=== PATIENT | male | born 1965 ===

== ENCOUNTER → 2024-02-25 11:41 | Outpatient (REF) | payer OTHER, SELFPAY | LOC: HWCARD 11:41 | PROVIDERS: ATTENDING PHYSICIAN Nurse Practitioner Family | DX: R53.83 Other fatigue (principal); R42 Dizziness and giddiness | CPT/HCPCS: 93005 ==

== ENCOUNTER 2025-01-19 20:13 | Emergency (ER) | payer OTHER, SELFPAY ==
[2025-01-19 20:27] VITALS: BP 145/82
--- NOTE | 2025-01-20 00:58 | ED.GENMED ---
History of Present Illness
General
Chief Complaint: Musculo-Skeletal Complaint
Source: patient and spouse
Exam Limitations: none
Time Seen by Provider: 01/19/25 22:36
Nursing documentation reviewed up to this point in time: agreed with
History of Present Illness
History of Present Illness:
Note:
CHIEF COMPLAINT(S)
Swelling and increased pain in the foot and ankle following a calf injury.
HISTORY OF PRESENT ILLNESS
The patient is a 59-year-old male who presented with swelling and increased pain in the foot and ankle following a calf injury. The patient described the onset of symptoms after playing tennis on Saturday morning and attempting a win movement,
during which he felt a 'pop' in his calf and immediately fell to the ground. The initial injury was followed by 36 hours of icing the affected area. The foot and ankle have shown progressive swelling and increased pain in the Achilles tendon area
since the initial incident. The patient has experienced calf tenderness immediately following the injury. Although the patient initially suspected no issue with the Achilles tendon, the recent symptoms have raised concerns. He reports being able to
walk slowly despite experiencing discomfort, predominantly in the calf region.
The patient denies any recent antibiotic use and has had limited mobility since the injury, with significant pain on weight bearing. The patient notes no history of complete rupture and mentions a lack of obvious broken bones as per a current
evaluation. The patient suspects a partial tear in the Achilles tendon and is experiencing significant swelling around the Achilles region.
PHYSICAL EXAM
- Musculoskeletal: No obvious deformities noted in the limbs. No visible muscle contraction deformity suggestive of complete Achilles tendon rupture.
- Bones: No tenderness or obvious fractures upon palpation of bones.
Nursing notes reviewed and vital signs reviewed.
PROBLEM LIST
Acute:
- Calf Injury with suspected partial Achilles tendon tear
- Swelling and pain in the foot and ankle
- Calf tenderness following a physical activity
PLAN
- Order an ultrasound to evaluate for fluid and confirm the extent of any soft tissue injury.
- Recommend follow-up with an monitoring specialist for comprehensive evaluation and management.
- Immobilize the affected limb using a splint and provide crutches to minimize weight bearing and prevent further injury.
- Advised the patient to remain non-weight bearing until evaluated by orthopedic surgery.
- Arrange for referral to an orthopedic surgeon for further care.
DIFFERENTIAL DIAGNOSIS
The Differential Diagnosis includes, in no particular order and is not limited to:
1. Partial Achilles tendon tear
2. Ankle sprain
3. Calf muscle strain
4. Deep vein thrombosis ruled out
5. Achilles tendonitis
6. Ankle fracture
Disposition:
SUMMARY OF ENCOUNTER
A 59-year-old male presented to the emergency department with tenderness in the left calf after injuring himself playing tennis. He reported increased pain in the Achilles and calf regions, having ambulated on the injury since the incident. The
patient denied recent antibiotic use. X-rays revealed no fractures, and an ultrasound ruled out deep vein thrombosis (DVT).
ASSESSMENT
The patient is suspected to have a partial Achilles tendon tear with significant swelling and pain in the Achilles and calf regions.
PLAN
- Advise immobilization of the affected limb using a splint.
- Provide crutches to minimize weight-bearing and prevent further injury.
- Recommend follow-up with an monitoring specialist for further evaluation and management.
PATIENT EDUCATION AND COUNSELING
The patient was advised to remain non-weight bearing until evaluated by orthopedic surgery. Education was provided regarding the importance of avoiding activities that may exacerbate the injury.
FOLLOW-UP INSTRUCTIONS
The patient should follow up with an monitoring specialist as soon as possible for a comprehensive evaluation and management plan.
MEDICAL DECISION MAKING
-Complexity of Data Reviewed:
Chronic conditions affecting care include a recent calf injury with suspected partial Achilles tendon tear, swelling, and pain in the foot and ankle, as well as calf tenderness following physical activity.
Differential Diagnosis: Partial Achilles tendon tear, ankle sprain, calf muscle strain, deep vein thrombosis, Achilles tendonitis, ankle fracture, contusion to the calf muscle, plantar fasciitis, compartment syndrome, ruptured Bakers cyst.
-Data:
Category 1:
X-rays were reviewed and found to be negative for fractures. Ultrasound results were negative for DVT.
Category 3:
Patient instructed and management discussed about follow-up care with orthopedic surgery to further evaluate and manage the suspected partial Achilles tendon tear.
DIAGNOSIS
Suspected partial rupture of Achilles tendon (ICD-10: S86.012A)
Achilles tendinitis (ICD-10: M76.6)
Review of Systems
Review of Systems
Allergies reviewed?: Yes
All Other Systems: ROS reviewed and negative except as documented in HPI and ROS
Musculoskeletal: Reports muscle pain, muscle stiffness and edema
Psychiatric: Reports anxiety
Phy Exam
General Physical Exam
General Presentation: well appearing and mild distress
General age: appears stated age
General Skin: warm
General Habitus: normal
General Mental: alert
General Hydration: appears well hydrated
ENT Exam
ENT Exam: EOMI and neck supple
Pulmonary Exam
Pulmonary Exam: no respiratory distress and no cough
Neurological Exam
Neurological Exam: alert and oriented x3
Musculoskeletal Exam
Musculoskeletal Exam: full ROM, edema (Left ankle edema.), neuro vasc intact and other (No tibial plateau tenderness.)
Psychiatric Exam
Psychiatric Exam: normal mood/affect
Course
Orders/Labs/Results
Orders:
Orders
01/19/25 20:32
Ankle, left 3 view CR [CR Ankle - Left Min 3 Views ] Urgent
Comment:
Reason For Exam: injury,pain
CR Leg Tibia/fibula Left 2 Vw Urgent
Comment:
Reason For Exam: injury,pain
01/20/25 00:00
US Periph Venous LOWER Ext LT Urgent
Reason For Exam: calf pain and tenderness
Vital Signs
Initial and Last Documented VS:
Initial Vital Signs
Temp Pulse Resp BP Pulse Ox
98.4 F 70 20 145/82 95
01/19/25 20:27 01/19/25 20:27 01/19/25 20:27 01/19/25 20:27 01/19/25 20:27
Last Documented Vital Signs
Temp Pulse Resp BP Pulse Ox
98.4 F 70 20 145/82 95
01/19/25 20:27 01/19/25 20:27 01/19/25 20:27 01/19/25 20:27 01/19/25 20:27
*Radiology
Radiology exam reviewed: all reviewed NAD by ED Provider
*Pulse Oximetry
SaO2: 95
Oxygen Mode of Delivery: Room air
Patient hypoxic: no
*Critical Care Note
Total Time (30-74mins, 75-104mins- exclusive of procedures): Not Applicable
ED Attending Note
-
Portions of this chart may have been created with voice recognition software.� Occasional wrong word or��sound alike� substitutions may have occurred due to the inherent limitations of voice recognition software.
Discharge Plan
Departure
Patient Disposition: Home (Routine Discharge)
Date of Disposition: 01/20/25
Time of Disposition: 00:59
Patient with high blood pressure during this ER visit?: Yes
Condition: Good
Discharge Problem:
Achilles tendinosis
Instructions: Achilles tendon injury, How to Use Crutches, Splint Care
Referrals:
Hari Walker MD [Active, Orthopedics] - Next open appointment
Basil Gaytan DO [Family Provider, Internal Medicine]
Activity Restrictions/Additional Instructions:
Thank You for choosing [facility].
It was a pleasure meeting you and taking part in your care. We hope for your continued healing and wellness.
Please read discharge instructions in their entirety. However, they are for general education and may not describe your exact diagnosis at discharge. Information on your ER visit and medical conditions were discussed with you along with appropriate
follow up information...
If indicated, please take your medications as instructed and indicated on discharge paperwork.
Please schedule a follow up appointment as directed. Call to schedule an appointment
Please return to the emergency department with ANY change in, persisting, or worsening of symptoms. If any of your symptoms do not improve, or persist, or become more severe within 6-12 hours, please return to the emergency department for further
care.
Please return to the emergency department if you develop a headache, neck pain/stiffness, fever greater than 100.4F, chest pain, shortness of breath, persistent nausea, vomiting, slurred speech, difficulty walking, numbness/tingling, weakness, signs
of infection or any other symptoms that are worrisome to you.
If you have any questions or concerns please do not hesitate to call the Hospital at or E-mail me directly at [email or web address]
Interventions
Interventions:
*Risk Screen - Suicide Last Done: 01/19/25 20:27
*General Assessment Last Done: 01/19/25 20:27
*Neglect/Abuse Screening Last Done: 01/19/25 20:27
*ED- Fall Risk Assessment Last Done: 01/19/25 20:27
*ED COVID-19 Vaccine History Last Done: 01/19/25 20:27
ED-Musculoskeletal Assessment Last Done: 01/20/25 00:20
Discharge Date and Time
Print Language: FAROESE
[2025-01-20 01:00] VITALS: BP 130/80
== END 2025-01-20 01:42 | disposition home or self-care (01) ==
LOC: EMR 20:13
PROVIDERS: EMERGENCY PHYSICIAN Student in an Organized Health Care Education/Training Program; FAMILY PHYSICIAN Internal Medicine
DX: M76.62 Achilles tendinitis, left leg (principal); S99.912A Unspecified injury of left ankle, initial encounter; W19.XXXA Unspecified fall, initial encounter
CPT/HCPCS: 29515; 99283; 73590; 73610; 93971